=== PATIENT | female | born 1965 | race American Indian/Alaskan Native ===

== ENCOUNTER 2018-06-19 16:14 | Inpatient (IN) | payer OTHER ==
--- NOTE | 2018-06-19 16:37 | Emergency Department Report ---
Blank Doc - Documentation Documentation: 53 y/o female comes in for new weakness 20 mins PER DIEM NURSE. History of CVA and [facility] 2005.
--- NOTE | 2018-06-19 16:37 | Emergency Department Report ---
HPI - General Chief Complaint: Weakness Time Seen by Provider: 06/19/18 16:34 - HPI HPI: Room 22 The patient is a 53-year-old female presented with a chief complaint of headache and right-sided weakness. The patient states 20 minutes prior to arrival she developed a headache and right arm/right leg weakness. 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 Patient denies dysarthria and is unaware of dysphagia. Patient currently gives her headache a score of 9/10 Location: [employer] Duration: Onset 20 minutes prior to arrival Quality: Headache of, Weakness Severity: 9/10 Modifying factors: [see above] Context: [see above] Mode of transportation: [not driving] ED Past Medical Hx - Past Medical History Hx Hypertension: Yes Hx CVA: Yes (2006. Residual right-sided weakness) - Surgical History Hx Appendectomy: Yes Additional Surgical History: Hysterectomy, cerebral aneurysm coil - Family History Family history: no significant - Social History Smoking Status: Never Smoker ED Review of Systems ROS: Stated complaint: WEAKNESS ON RT SIDE/HEADACHE Other details as noted in HPI Constitutional: no symptoms reported Eyes: denies: eye pain ENT: denies: throat pain Respiratory: no symptoms reported Cardiovascular: denies: chest pain Endocrine: no symptoms reported Gastrointestinal: denies: abdominal pain Genitourinary: denies: dysuria Musculoskeletal: denies: back pain Neurological: headache, weakness Physical Exam - Physical Exam Physical Exam: GENERAL: The patient is well-developed well-nourished female lying on stretcher not appearing to be in acute distress. [] HEENT: Normocephalic. Atraumatic. Extraocular motions are intact. Patient has moist mucous membranes. NECK: Supple. Trachea midline CHEST/LUNGS: Clear to auscultation. There is no respiratory distress noted. HEART/CARDIOVASCULAR: Regular. There is no tachycardia. There is no gallop rub or murmur. ABDOMEN: Abdomen is soft, nontender. Patient has normal bowel sounds. There is no abdominal distention. SKIN: There is no rash. There is no edema. There is no diaphoresis. NEURO: The patient is awake, alert, and oriented. The patient is cooperative. Cranial nerves II through XI grossly intact. The tongue deviates to the right. The patient is only able to slightly move the right arm but not raise it off the bed. Patient unable to raise right lower extremity off the bed. The patient has normal speech MUSCULOSKELETAL: There is no evidence of acute injury. NIHSS= 9 LOC a. Alert= 0 Not alert but arousable to minor stimuli=1 Not alert requires repeated or strong stimuli to move= 2 Responds only reflex motor or unresponsive=3 b. asks month and age answers both correctly= 0 answers one correctly= 1 answers neither correctly= 2 Best Gaze normal= 0 abnormal in one or both but forced deviation or total paresis absent= 1 forced deviation or total gaze paresis= 2 Visual no visual loss= 0 partial hemianopia= 1 complete hemianopia= 2 bilateral hemianopia= 3 Facial Palsy normal= 0 (+)minor paralysis= 1 partial paralysis= 2 complete paralysis= 3 Motor Arm no drift= 0 drift before 10 secs but doesnt hit bed= 1 some effort against gravity= 2 (+)no effort against gravity= 3 no movement= 4 Motor leg no drift= 0 drift before 5 secs but doesnt hit bed= 1 drifts to bed before 5 secs= 2 (+)no effort against gravity= 3 no movement= 4 Limb ataxia absent=0 present in one limb= 1 (+)present in two limbs= 2 Sensory normal= 0 mild sensory loss= 1 severe (unaware of being touched)= 2 Best language mild/some loss of fluency= 1 severe= 2 mute= 3 Dysarthria normal= 0 slurs some words= 1 severe/unintelligible= 2 Extinction and Inattention no abnormality= 0 visual, tactile, auditory or personal inattention= 1 profound (doesnt recognize own hand or orients to only one side= 2 ED Course - Consultations Consultation #1: 06/19/18 17:09 Case discussed with tele neurologist- no TPA recommended at this time. Recommend CTA brain and neck and admission for further workup ED Medical Decision Making - Lab Data Result diagrams: 06/19/18 16:55 06/19/18 16:55 - EKG Data -: EKG Interpreted by Me EKG shows normal: sinus rhythm Rate: normal - EKG Data When compared to previous EKG there are: previous EKG unavailable Interpretation: nonspecific ST-T wave obdulia (T-wave inversion in lead aVL) - Radiology Data Radiology results: report reviewed (CT head, CTA brain, CTA neck), image reviewed (CT head, CTA brain, CTA neck) [address] [address] Cat Scan Report Signed Patient: CINDI HADDAD MR#: [id number] 92 : 1965 Acct:[id number] Age/Sex: 53 / F ADM Date: 06/19/18 Loc: ED Attending Dr: Order ing Physician: JOSEPH HAYNES MD Date of Service: 06/19/18 Procedure(s): CT head/brain wo con Accession Number(s): [id number] cc: JOSEPH HAYNES MD PROCEDURE: CT HEAD/BRAIN WO CON TECHNIQUE: CT examination of the head without IV contrast HISTORY: neuro deficit COMPARISONS: None FINDINGS: Nonspecific metallic density may reflect aneurysm clip in the anterior left CP angle region. Chronic appearing encephalomalacia and volume loss in the left cerebellar hemisphere suggestive of chronic infarct. Developmental variation includes a cavum septum pellucidum and vergae. No acute air-fluid level visualized in the included air- filled sinuses. Bone windows demonstrate no acute fracture. The brain is without mass, mass effect, hemorrhage, or acute infarct. There is no extra-axial intracranial bleed, brain bleed, or midline shift. The ventricles and sulci are age-appropriate. IMPRESSION: No acute CVA, intracranial bleed, or brain mass Nonspecific metallic density may reflect aneurysm clip in the anterior left CP angle region. Chronic appearing encephalomalacia and volume loss in the left cerebellar hemisphere suggestive of chronic infarct. This document is electronically signed by Kale Ward MD., Jun 19 2018 05:02:17 PM ET Transcribed By: BAL Dictated By: KALE WARD MD Electronically Auth enticated By: KALE WARD MD Signed Date/Time: 06/19/18 170 DD/ 53 TD/TT: 06/19/181654 [address] [address] Cat Scan Report Signed Patient: CINDI HADDAD MR#: [id number] 92 : 1965 Acct:[id number] Age/Sex: 53 / F ADM Date: 06/19/18 Loc: ED Attending Dr: Ordering Physician: JOSEPH HAYNES MD Date of Service: 06/19/18 Procedure(s): CT angio neck Accession Number(s): [id number] cc: JOSEPH HAYNES MD HISTORY: right-sided weakness PROCEDURE: Head CTA with contrast Neck CTA with contrast TECHNIQUE: CTA examination of the head with IV contrast CTA examination of the neck with IV contrast 2-D and 3-D angiographic reconstructions of the head and neck Images are first made available to this radiologist for interpretation on the date and time that report dictation is made. This accounts for the discrepancy between the procedure time and dictation,. COMPARISON: CT head 06/19/2018 FINDINGS: Head CTA: Developmental variation includes a cavum septum pellucidum and vergae. Again noted is nonspecific metallic density in the anterior left CP angle region. This may be an aneurysm clip. Metal artifact limits the examination. Again noted is chronic appearing encephalomalacia and volume loss in left cerebellar hemisphere suggestive of chronic infarct. Carotid siphon: Normal. Anterior cerebral: Normal. Middle cerebral: Normal. Posterior cerebral: Normal. Vertebral: Normal. Basilar: Normal. Dural sinuses: Normal. Occlusion: None. Vascular malformations: None. Aneurysm: None. IMPRESSION: No CTA evidence of brain vascular pathology Metallic density in left anterior CP angle region may b e an aneurysm clip Chronic appearing encephalomalacia and volume loss in left cerebellar hemisphere suggestive of chronic infarct Neck CTA: Common Carotid arteries: Normal. Carotid bifurcation: Normal. Proximal ICAs: Approximately 28% diameter stenosis at the left ICA origin. Proximal vertebral arteries: Normal. Occlusion: None. Vascular ulceration: None. Filling defect to suggest dissection: None IMPRESSION: Approximately 28% diameter stenosis of the left ICA origin This document is electronically signed by Kale Ward MD., Jun 19 2018 06:35:17 PM ET Transcribed By: BAL Dictated By: KALE WARD MD Electronically Authenticated By: KALE WARD MD Signed Date/Time: 06/19/181836 DD/ 10 TD/TT: 06/19/181710 [facility] [address] [place] [address] Cat Scan Report Signed Patient: CINDI HADDAD MR#: [id number] 92 : 1965 Acct:[id number] Age/Sex: 53 / F ADM Date: 06/19/18 Loc: ED Attending Dr: Ordering Physician: JOSEPH HAYNES MD Date of Service: 06/19/18 Procedure(s): CT angio head Accession Number(s): [id number] cc: JOSEPH HAYNES MD HISTORY: right-sided weakness PROCEDURE: Head CTA with contrast Neck CTA with contrast TECHNIQUE: CTA examination of the head with IV contrast CTA examination of the neck with IV contrast 2-D and 3-D angiographic reconstructions of the head and neck Images are first made available to this radiologist for interpretation on the date and time that report dictation is made. This accounts for the discrepancy between the procedure time and dictation time. COMPARISON: CT head 06/19/2018 FINDINGS: Head CTA: Developmental variation includes a cavum septum pellucidum and vergae. Again noted is nonspecific metallic density in the anterior left CP angle reg ion. This may be an aneurysm clip. Metal artifact limits the examination. Again noted is chronic appearing encephalomalacia and volume loss in left cerebellar hemisphere suggestive of chronic infarct. Carotid siphon: Normal. Anterior cerebral: Normal. Middle cerebral: Normal. Posterior cerebral: Normal. Vertebral: Normal. Basilar: Normal. Dural sinuses: Normal. Occlusion: None. Vascular malformations: None. Aneurysm: None. IMPRESSION: No CTA evidence of brain vascular pathology Metallic density in left anterior CP angle region may be an aneurysm clip Chronic appearing encephalomalacia and volume loss in left cerebellar hemisphere suggestive of chronic infarct Neck CTA: Common Carotid arteries: Normal. Carotid bifurcation: Normal. Proximal ICAs: Approximately 28% diameter stenosis at the left ICA origin. Proximal vertebral arteries: Normal. Occlusion: None. Vascular ulceration: None. Filling defect to suggest dissection: None IMPRESSION: Approximately 28% diameter stenosis of the left ICA origin This document is electronically signed by Kale Ward MD., Jun 19 2018 06:37:31 PM ET Transcribed By: BAL Dictated By: KALE WARD MD Electronically Authenticated By: KALE WARD MD Signed Date/Time: 06/19/181838 DD/ 20 TD/TT: 06/19/181820 - Differential Diagnosis CVA, ICH Critical Care Time: Yes Critical care time in (mins) excluding proc time.: 30 Critical care attestation.: If time is entered above; I have spent that time in minutes in the direct care of this critically ill patient, excluding procedure time. ED Disposition Clinical Impression: CVA (cerebral vascular accident) Disposition: [id number] OP ADMIT IP TO THIS HOSP Is pt being admited?: Yes Does the pt Need Aspirin: Yes Condition: Fair Time of Disposition: 18:42 (hospitalist paged (Dr Arriola))
--- NOTE | 2018-06-19 17:04 | Cat Scan Report ---
PROCEDURE: CT HEAD/BRAIN WO CON TECHNIQUE: CT examination of the head without IV contrast HISTORY: neuro deficit COMPARISONS: None FINDINGS: Nonspecific metallic density may reflect aneurysm clip in the anterior left CP angle region. Chronic appearing encephalomalacia and volume loss in the left cerebellar hemisphere suggestive of ch ronic infarct. Developmental variation includes a cavum septum pellucidum and vergae. No acute air-fluid level visualized in the included air-filled sinuses. Bone windows demonstrate no acute fracture. The brain is without mass, mass effect, hemorrhage, or acute infarct. There is no extra-axial intracranial bleed, brain bleed, or midline shift. The ventricles and sulci are age-appropriate. IMPRESSION: No acute CVA, intracranial bleed, or brain mass Nonspecific metallic density may reflect aneurysm clip in the anterior left CP angle region. Chronic appearing encephalomalacia and volume loss in the left cerebellar hemisphere suggestive of ch ronic infarct. This document is electronically signed by Kale Ward MD., Jun 19 2018 05:02:17 PM ET
[2018-06-19 17:05] LABS: Basophils # (Auto) 0.1 K/mm3 (0.0-0.1); Basophils % (Auto) 1.3 % (0.0-1.8); Eosinophils # (Auto) 0.1 K/mm3 (0.0-0.4); Eosinophils % (Auto) 1.3 % (0.0-4.3); Hemoglobin 12.7 gm/dl (10.1-14.3); Lymphocytes # (Auto) 2.2 K/mm3 (1.2-5.4); Lymphocytes % (Auto) 36.7 % (13.4-35.0); Mean Corpuscular HGB Conc 33 % (30-34); Mean Corpuscular Volume 90 fl (79-97); Monocytes # (Auto) 0.4 K/mm3 (0.0-0.8); Monocytes % (Auto) 7.2 % (0.0-7.3); Platelet Count 249 K/mm3 (140-440); Red Blood Count 4.25 M/mm3 (3.65-5.03); Red Cell Distribution Width 14.4 % (13.2-15.2)
[2018-06-19] MEDS ORDERED: NORCO 5/325 PO ONE (17:11)
[2018-06-19] MEDS ORDERED: PLAVIX PO ONE (17:11)
[2018-06-19 17:12] LABS: INR 0.9 (0.87-1.13)
[2018-06-19 17:13] LABS: Partial Thromboplastin Time 29.8 Sec. (24.2-36.6); Thrombin Time 14.9 Sec. (15.1-19.6)
--- NOTE | 2018-06-19 17:13 | Emergency Department Report ---
HPI - General Chief Complaint: Weakness Time Seen by Provider: 06/19/18 16:34 - HPI HPI: [facility] Asked to see this patient in telemedicine consultation. Consultation was performed with assistance of ancillary/medical staff at bedside. Comments: Last Known normal 1600 Door Time: 1636 [facility] Contacted: 1636 [facility] first log in: 1641 NIHSS assessment time: 1650 Call back time: 1650 Needle Time: no iv tpa HPI: 53 yof with hx of cerebral aneurysm, possibly hemorrhagic stroke presents with headache and worsening of right sided weakness. She drags her leg at baseline line and ambulates with walker but today required assistance to move. She has moderate headache but denies vision change. Ct scan head per my review is negative for acute process. VSS Gen Wn/Wd in Nad TeleStroke Assessment: LOC: 0 LOC questions: 0 LOC Commands : 0 Gaze : 0 Visual etienne : 0 Facial movements :1 Upper limb Motor 2 Lower limb Motor 3 Limb Coordination - 0 Sensory - - 0 Language - 0 Speech - 1 Neglect / extinction - 0 NIHSS Score: 7 IMPRESSION Cerebral aneurysm hx of Stroke with residual right hemibody weakness with worsening sxs in conjunction with headache. Medical Decision Making: Patient is not candidate for alteplase due to ICH hx, and reactivation of old sxs. Not an IR candidate as low clinical suspicion for LVO by neurologic assessment Recommendations: - Daily antithrombotics to initiate now if no contraindication. - agree with cta head and neck at this time. - Further work up with Stroke labs will be deferred to inpt neurology service - Needs Inpatient Neurology consultation and follow up - Thank you for allowing us to participate in the care of your patient, if there are any questions please don't hesitate to contact us Discussed plan of care with patient/hospital staff Physician: Nela Collado, DO [facility] ED Past Medical Hx - Past Medical History Previous Medical History?: Yes Hx Hypertension: Yes Hx CVA: Yes Additional medical history: aneurysm - Surgical History Past Surgical History?: Yes ED Review of Systems ROS: Stated complaint: WEAKNESS ON RT SIDE/HEADACHE Other details as noted in HPI Physical Exam - Physical Exam Vital Signs: Vital Signs 06/19/18 06/19/18 16:49 17:00 Pulse Rate 71 Respiratory 14 Rate Blood Pressure 186/93 O2 Sat by Pulse 97 100 Oximetry ED Course Vital Signs 06/19/18 06/19/18 16:49 17:00 Pulse Rate 71 Respiratory 14 Rate Blood Pressure 186/93 O2 Sat by Pulse 97 100 Oximetry ED Medical Decision Making - Lab Data Result diagrams: 06/19/18 16:55 Critical care attestation.: If time is entered above; I have spent that time in minutes in the direct care of this critically ill patient, excluding procedure time. ED Disposition Clinical Impression: CVA (cerebral vascular accident) Disposition: DC-[id number] OP ADMIT IP TO THIS HOSP Is pt being admited?: Yes Condition: Stable
[2018-06-19 17:42] LABS: Creatine Kinase MB 1.9 ng/mL (0.0-4.0)
[2018-06-19 17:44] LABS: Alanine Aminotransferase 31 units/L (7-56); Albumin 4.3 g/dL (3.9-5); BUN/Creatinine Ratio 16; Blood Urea Nitrogen 11 mg/dL (7-17); Calcium 9.3 mg/dL (8.4-10.2); Hemolysis Index 0
--- NOTE | 2018-06-19 18:39 | Cat Scan Report ---
HISTORY: right-sided weakness PROCEDURE: Head CTA with contrast Neck CTA with contrast TECHNIQUE: CTA examination of the head with IV contrast CTA examination of the neck with IV contrast 2-D and 3-D angiographic reconstructions of the head and neck Images are first made available to this radiologist for interpretation on the date and time that repo rt dictation is made. This accounts for the discrepancy between the procedure time and dictation time . COMPARISON: CT head 06/19/2018 FINDINGS: Head CTA: Developmental variation includes a cavum septum pellucidum and vergae. Again noted is nonspecific metallic density in the anterior left CP angle region. This may be an aneu rysm clip. Metal artifact limits the examination. Again noted is chronic appearing encephalomalacia and volume loss in left cerebellar hemisphere sugge stive of chronic infarct. Carotid siphon: Normal. Anterior cerebral: Normal. Middle cerebral: Normal. Posterior cerebral: Normal. Vertebral: Normal. Basilar: Normal. Dural sinuses: Normal. Occlusion: None. Vascular malformations: None. Aneurysm: None. IMPRESSION: No CTA evidence of brain vascular pathology Metallic density in left anterior CP angle region may be an aneurysm clip Chronic appearing encephalomalacia and volume loss in left cerebellar hemisphere suggestive of chroni c infarct Neck CTA: Common Carotid arteries: Normal. Carotid bifurcation: Normal. Proximal ICAs: Approximately 28% diameter stenosis at the left ICA origin. Proximal vertebral arteries: Normal. Occlusion: None. Vascular ulceration: None. Filling defect to suggest dissection: None IMPRESSION: Approximately 28% diameter stenosis of the left ICA origin This document is electronically signed by Kale Ward MD., Jun 19 2018 06:37:31 PM ET
[2018-06-19] MEDS ORDERED: MORPHINE IV PRN (20:06)
[2018-06-19] MEDS ORDERED: MILK OF MAGNESIA PO PRN (20:06)
[2018-06-19] MEDS ORDERED: TYLENOL PO PRN (20:06)
[2018-06-19] MEDS ORDERED: DULCOLAX PR PRN (20:06)
[2018-06-19] MEDS ORDERED: SODIUM CHLORIDE FLUSH SYRINGE 10 ML IV PRN (20:06)
[2018-06-19] MEDS ORDERED: DILAUDID IV PRN (20:09)
[2018-06-19] MEDS: COLACE PO SCH ×2 (20:44→21:14)
--- NOTE | 2018-06-19 21:02 | History and Physical Report ---
History of Present Illness Date of examination: 06/19/18 Date of admission: 06/19/18 18:44 Chief complaint: Increased right-sided weakness, profound headache History of present illness: 53-year-old -[place] female with history of cerebral aneurysm, hypertens ion, HLD, and CVA 2005 [facility] with c/o headache and worsening right sided weakness. At baseline she drags her right leg and ambulates with a walker. Patient states that [place] when she started feeling nauseous followed by progressively worsening headache. She states that her headache is located in the frontal lobe and rates her pain as 10/10. Patient also states that her headache is accompanied by increased right sided weakness. There are no aggravating or relieving factors. Denies emesis, fever, cough, hemoptysis, chest pain, changes in vision. Past History Past Medical History: hypertension, hyperlipidemia, stroke (2005 with residual right sided weakness), other (endometriosis) Past Surgical History: appendectomy, hysterectomy Social history: no significant social history Family history: no significant family history Medications and Allergies Allergies Allergy/AdvReac Type Severity Reaction Status Date / Time aspirin Allergy Unknown Verified 06/19/18 17:50 Home Medications Medication Instructions Recorded Confirmed Last Taken Type Clopidogrel [Plavix] 300 mg PO ONCE 06/19/18 06/19/18 06/19/18 History Lisinopril [Zestril] 20 mg PO QDAY 06/19/18 06/19/18 06/19/18 History Active Meds: Active Medications Acetaminophen (Tylenol) 650 mg PO Q4H PRN PRN Reason: Pain, Mild (1-3) Atorvastatin Calcium (Lipitor) 40 mg PO QHS [facility] Last Admin: 06/19/18 20:44 Dose: 40 mg Documented by: Bisacodyl (Dulcolax) 10 mg IA QDAY PRN PRN Reason: Constipation Clopidogrel Bisulfate (Plavix) 75 mg PO QDAY [facility] Docusate Sodium (Colace) 100 mg PO BID [facility] Last Admin: 06/19/18 20:44 Dose: 100 mg Documented by: Hydralazine HCl (Apresoline) 10 mg IV Q4HR PRN PRN Reason: Blood Pressure Hydromorphone HCl (Dilaudid) 0.5 mg IV Q3H PRN PRN Reason: Pain , Severe (7-10) Stop: 06/20/18 23:59 Last Admin: 06/19/18 20:44 Dose: 0.5 mg Documented by: Magnesium Hydroxide (Milk Of Magnesia) 30 ml PO Q4H PRN PRN Reason: Constipation Morphine Sulfate (Morphine) 2 mg IV Q4H PRN PRN Reason: Pain, Moderate (4-6) Stop: 06/20/18 23:59 Ondansetron HCl (Zofran) 4 mg IV Q8H PRN PRN Reason: Nausea And Vomiting Oxycodone/Acetaminophen (Percocet 5/325) 1 tab PO Q6H PRN PRN Reason: Pain, Moderate (4-6) Sodium Chloride (Sodium Chloride Flush Syringe 10 Ml) 10 ml IV PRN PRN PRN Reason: LINE FLUSH Review of Systems All systems: negative (reviewed and no additional remarkable complaints except as noted below) Ears, nose, mouth and throat: headache (frontal headache) Musculoskeletal: other (right sided weakness) Neurological: weakness (right-sided weakness, ), gait dysfunction (related to previous stroke right-sided) Exam - Physical Exam Narrative exam: Physical exam General appearance: Present: No acute distress, right facial droop - EENT Eyes: Present: PERRL, EOM intact ENT: hearing intact, - Neck Neck: Present: supple, normal ROM - Respiratory Respiratory effort: Non-labored Respiratory: Clear throughout - Cardiovascular Heart rate:62 (bpm) Rhythm: regular Heart Sounds: Present: S1 & S2. Absent: rub, click - Extremities Extremities: no ischemia, pulses intact, abnormal (right-sided weakness. On able to move right upper extremity and right lower extremity against gravity) - Peripheral Assessment Peripheral Pulses: within normal limits - Abdominal General gastrointestinal: soft, non-tender, normal bowel sounds - Integumentary Integumentary: Present: warm, dry - Musculoskeletal Musculoskeletal: Right-sided weakness - Psychiatric Psychiatric: cooperative - Constitutional Vitals: Temp Pulse Resp BP Pulse Ox 97.8 F 62 15 161/65 100 06/19/18 17:08 06/19/18 19:16 06/19/18 19:16 06/19/18 19:16 06/19/18 19:16 Results - Labs CBC & Chem 7: 06/19/18 16:55 06/19/18 16:55 Labs: Laboratory Last Values WBC 6.0 K/mm3 (4.5-11.0) 06/19/18 16:55 RBC 4.25 M/mm3 (3.65-5.03) 06/19/18 16:55 Hgb 12.7 gm/dl (10.1-14.3) 06/19/18 16:55 Hct 38.0 % (30.3-42.9) 06/19/18 16:55 MCV 90 fl (79-97) 06/19/18 16:55 MCH 30 pg (28-32) 06/19/18 16:55 MCHC 33 % (30-34) 06/19/18 16:55 RDW 14.4 % (13.2-15.2) 06/19/18 16:55 Plt Count 249 K/mm3 (140-440) 06/19/18 16:55 Lymph % (Auto) 36.7 % (13.4-35.0) H 06/19/18 16:55 [place] % (Auto) 7.2 % (0.0-7.3) 06/19/18 16:55 Eos % (Auto) 1.3 % (0.0-4.3) 06/19/18 16:55 Baso % (Auto) 1.3 % (0.0-1.8) 06/19/18 16:55 Lymph # 2.2 K/mm3 (1.2-5.4) 06/19/18 16:55 [place] # 0.4 K/mm3 (0.0-0.8) 06/19/18 16:55 Eos # 0.1 K/mm3 (0.0-0.4) 06/19/18 16:55 Baso # 0.1 K/mm3 (0.0-0.1) 06/19/18 16:55 Seg Neutrophils % 53.5 % (40.0-70.0) 06/19/18 16:55 Seg Neutrophils # 3.2 K/mm3 (1.8-7.7) 06/19/18 16:55 PT 12.7 Sec. (12.2-14.9) 06/19/18 16:55 INR 0.90 (0.87-1.13) 06/19/18 16:55 APTT 29.8 Sec. (24.2-36.6) 06/19/18 16:55 14.9 Sec. (15.1-19.6) L 06/19/18 16:55 Sodium 141 mmol/L (137-145) 06/19/18 16:55 Potassium 4.0 mmol/L (3.6-5.0) 06/19/18 16:55 Chloride 103.6 mmol/L (98-107) 06/19/18 16:55 Carbon Dioxide 26 mmol/L (22-30) 06/19/18 16:55 15 mmol/L 06/19/18 16:55 BUN 11 mg/dL (7-17) 06/19/18 16:55 0.7 mg/dL (0.7-1.2) 06/19/18 16:55 Estimated GFR > 60 ml/min 06/19/18 16:55 16 % 06/19/18 16:55 Glucose 85 mg/dL (65-100) 06/19/18 16:55 POC Glucose 64 (70-105) L 06/19/18 16:56 Calcium 9.3 mg/dL (8.4-10.2) 06/19/18 16:55 0.20 mg/dL (0.1-1.2) 06/19/18 16:55 AST 32 units/L (5-40) 06/19/18 16:55 ALT 31 units/L (7-56) 06/19/18 16:55 151 units/L (35-129) H 06/19/18 16:55 131 units/L (30-135) 06/19/18 16:55 CK-MB (CK-2) 1.9 ng/mL (0.0-4.0) 06/19/18 16:55 CK-MB (CK-2) Rel Index 1.4 (0-4) 06/19/18 16:55 < 0.010 ng/mL (0.00-0.029) 06/19/18 16:55 7.5 g/dL (6.3-8.2) 06/19/18 16:55 4.3 g/dL (3.9-5) 06/19/18 16:55 1.3 % 06/19/18 16:55 Short CBC 06/19/18 Range/Units 16:55 WBC 6.0 (4.5-11.0) K/mm3 Hgb 12.7 (10.1-14.3) gm/dl Hct 38.0 (30.3-42.9) % Plt Count 249 (140-440) K/mm3 BMP 06/19/18 16:55 Sodium 141 Potassium 4.0 Chloride 103.6 Carbon Dioxide 26 BUN 11 Creatinine 0.7 Glucose 85 Calcium 9.3 Cardiac Enzymes 06/19/18 Range/Units 16:55 Total Creatine Kinase 131 (30-135) units/L CK-MB (CK-2) 1.9 (0.0-4.0) ng/mL Troponin T < 0.010 (0.00-0.029) ng/mL Liver Function 06/19/18 Range/Units 16:55 Total Bilirubin 0.20 (0.1-1.2) mg/dL AST 32 (5-40) units/L ALT 31 (7-56) units/L Alkaline Phosphatase 151 H (35-129) units/L Albumin 4.3 (3.9-5) g/dL - Imaging and Cardiology CT Scan - head: report reviewed (No CTA evidence of brain vascular pathology; Metallic density in left anterior CP angle region may be an aneurysm clip; Chronic appearing encephalomalacia and volume loss in left cerebellar hemisphere suggestive of chronic infarct), image reviewed Imaging and Cardiology: CTA Neck: IMPRESSION: Approximately 28% diameter stenosis of the left ICA origin Assessment and Plan Assessment and plan: 53-year-old -[place] female with history of cerebral aneurysm, hypertension, HLD, and CVA 2005 presents to [facility] with c/o headache and worsening right sided weakness. At baseline she drags her right leg and ambulates with a walker. Given patient's history of cerebral aneurysm she is not a candidate for TPA. CT was unrevealing for any acute abnormalities. Troponin negative. Telemetry specialist was contacted for initial assessment patient. Patient will be admitted to telemetry. Suspicion of Acute CVA Hx of CVA 2005 History of cerebral aneurysm Hypertensive urgency History of hypertension Acute Headache Plan: Continue supportive care. Start Plavix 75mg daily No aspirin- patient is allergic No TPA- d/t history of aneurysm Continue stroke protocol Continue neuro checks Monitor BP Hold home antihypertensive medications at this time IV hydralazine when necessary for SBP>160 PT/OT consulted Continue telemetry monitoring Pain management Repeat CTA in 4 days DVT PPX on Plavix and SCDs Advance Directives: No VTE prophylaxis?: Chemical Plan of care discussed with patient/family: Yes
[2018-06-19] MEDS: ZOFRAN IV PRN (23:57)
[2018-06-20] MEDS: PERCOCET 5/325 PO PRN ×2 (00:10→18:27)
[2018-06-20] MEDS: APRESOLINE IV PRN ×2 (00:11→18:34)
--- NOTE | 2018-06-20 08:47 | Progress Note ---
Subjective Date of service: 06/20/18 Interval history: patient seen and assessed... prior hx of aneurysm and old stroke right cerebellum this stroke has stable appearance blood sugar is noted plan check sed rate Objective - Vital Sign Vital Signs - 12hr 06/19/18 06/19/18 06/20/18 22:00 23:54 00:11 Temperature 97.8 F Pulse Rate 74 62 62 Respiratory 18 Rate Blood Pressure 172/71 172/71 O2 Sat by Pulse 98 Oximetry 06/20/18 07:43 Temperature 97.8 F Pulse Rate 76 Respiratory 18 Rate Blood Pressure 139/59 O2 Sat by Pulse 99 Oximetry - Laboratory Findings CBC and BMP: 06/19/18 16:55 06/19/18 16:55 Abnormal Lab Findings: Abnormal Labs 06/19/18 06/19/18 06/19/18 16:55 16:55 16:55 Lymph % (Auto) 36.7 H Thrombin Time 14.9 L POC Glucose Alkaline Phosphatase 151 H 06/19/18 16:56 Lymph % (Auto) Thrombin Time POC Glucose 64 L Alkaline Phosphatase
[2018-06-20 09:40] LABS: Chol/HDL Ratio 2.84 %
[2018-06-20] MEDS ORDERED: PLAVIX PO SCH (10:00)
[2018-06-20] MEDS: COLACE PO SCH ×3 (10:16→21:55)
--- NOTE | 2018-06-20 13:00 | Progress Note ---
Assessment and Plan Assessment and plan: Right arm weakness CT head negative cannot do MRI because coils History of cerebral aneurysm history of stroke with right sided weakness HTN Monitor BP Hyperlipidemia full code status History Interval history: Headache right sided weakness Hospitalist Physical - Physical exam Narrative exam: Gen: Not in acute distress, lying in bed,obese HEENT: Normocephalic, atraumatic Neck: supple, no JVD Heart: S1 and S2 reg, no murmurs, rubs or gallop Lungs: Clear, no crackles Abd: soft, non tender, non distended, normal BS Ext: No edema, no clubbing, no cyanosis, Neuro: Awake,alert, oriented x 3, - Constitutional Vitals: Temp Pulse Resp BP Pulse Ox 97.8 F 64 18 139/59 99 06/20/18 07:43 06/20/18 09:59 06/20/18 07:43 06/20/18 07:43 06/20/18 07:43 Results - Labs CBC & Chem 7: 06/19/18 16:55 06/19/18 16:55 Labs: Laboratory Last Values WBC 6.0 K/mm3 (4.5-11.0) 06/19/18 16:55 RBC 4.25 M/mm3 (3.65-5.03) 06/19/18 16:55 Hgb 12.7 gm/dl (10.1-14.3) 06/19/18 16:55 Hct 38.0 % (30.3-42.9) 06/19/18 16:55 MCV 90 fl (79-97) 06/19/18 16:55 MCH 30 pg (28-32) 06/19/18 16:55 MCHC 33 % (30-34) 06/19/18 16:55 RDW 14.4 % (13.2-15.2) 06/19/18 16:55 Plt Count 249 K/mm3 (140-440) 06/19/18 16:55 Lymph % (Auto) 36.7 % (13.4-35.0) H 06/19/18 16:55 [place] % (Auto) 7.2 % (0.0-7.3) 06/19/18 16:55 Eos % (Auto) 1.3 % (0.0-4.3) 06/19/18 16:55 Baso % (Auto) 1.3 % (0.0-1.8) 06/19/18 16:55 Lymph # 2.2 K/mm3 (1.2-5.4) 06/19/18 16:55 [place] # 0.4 K/mm3 (0.0-0.8) 06/19/18 16:55 Eos # 0.1 K/mm3 (0.0-0.4) 06/19/18 16:55 Baso # 0.1 K/mm3 (0.0-0.1) 06/19/18 16:55 Seg Neutrophils % 53.5 % (40.0-70.0) 06/19/18 16:55 Seg Neutrophils # 3.2 K/mm3 (1.8-7.7) 06/19/18 16:55 ESR 43 mm/Hr (0-20) 06/20/18 09:13 PT 12.7 Sec. (12.2-14.9) 06/19/18 16:55 INR 0.90 (0.87-1.13) 06/19/18 16:55 APTT 29.8 Sec. (24.2-36.6) 06/19/18 16:55 14.9 Sec. (15.1-19.6) L 06/19/18 16:55 Sodium 141 mmol/L (137-145) 06/19/18 16:55 Potassium 4.0 mmol/L (3.6-5.0) 06/19/18 16:55 Chloride 103.6 mmol/L (98-107) 06/19/18 16:55 Carbon Dioxide 26 mmol/L (22-30) 06/19/18 16:55 15 mmol/L 06/19/18 16:55 BUN 11 mg/dL (7-17) 06/19/18 16:55 0.7 mg/dL (0.7-1.2) 06/19/18 16:55 Estimated GFR > 60 ml/min 06/19/18 16:55 16 % 06/19/18 16:55 Glucose 85 mg/dL (65-100) 06/19/18 16:55 POC Glucose 64 (70-105) L 06/19/18 16:56 6.0 % (4-6) 06/20/18 09:13 Calcium 9.3 mg/dL (8.4-10.2) 06/19/18 16:55 0.20 mg/dL (0.1-1.2) 06/19/18 16:55 AST 32 units/L (5-40) 06/19/18 16:55 ALT 31 units/L (7-56) 06/19/18 16:55 151 units/L (35-129) H 06/19/18 16:55 131 units/L (30-135) 06/19/18 16:55 CK-MB (CK-2) 1.9 ng/mL (0.0-4.0) 06/19/18 16:55 CK-MB (CK-2) Rel Index 1.4 (0-4) 06/19/18 16:55 < 0.010 ng/mL (0.00-0.029) 06/19/18 16:55 7.5 g/dL (6.3-8.2) 06/19/18 16:55 4.3 g/dL (3.9-5) 06/19/18 16:55 1.3 % 06/19/18 16:55 Triglycerides 103 mg/dL (2-149) 06/20/18 09:13 Cholesterol 188 mg/dL (50-199) 06/20/18 09:13 126 mg/dL (50-130) 06/20/18 09:13 66 mg/dL (40-59) H 06/20/18 09:13 2.84 % 06/20/18 09:13 Active Medications - Current Medications Current Medications: Generic Name Dose Route Start Last Admin Trade Name Freq PRN Reason Stop Dose Admin Acetaminophen 650 mg 06/19/18 20:06 Tylenol PO Q4H PRN Pain, Mild (1-3) Atorvastatin Calcium 40 mg 06/19/18 22:00 06/19/18 21:14 Lipitor PO Not Given QHS [facility] Bisacodyl 10 mg 06/19/18 20:06 Dulcolax DC QDAY PRN Constipation Clopidogrel Bisulfate 75 mg 06/20/18 10:00 06/20/18 10:16 Plavix PO 75 mg QDAY [facility] Administration Docusate Sodium 100 mg 06/19/18 22:00 06/20/18 10:16 Colace PO 100 mg BID [facility] Administration Hydralazine HCl 10 mg 06/19/18 20:17 06/20/18 00:11 Apresoline IV 10 mg Q4HR PRN Administration Blood Pressure Hydromorphone HCl 0.5 mg 06/19/18 20:09 06/19/18 20:44 Dilaudid IV 06/20/18 23:59 0.5 mg Q3H PRN Administration Pain , Severe (7-10) Magnesium Hydroxide 30 ml 06/19/18 20:06 Milk Of Magnesia PO Q4H PRN Constipation Morphine Sulfate 2 mg 06/19/18 20:06 Morphine IV 06/20/18 23:59 Q4H PRN Pain, Moderate (4-6) Ondansetron HCl 4 mg 06/19/18 20:06 06/19/18 23:57 Zofran IV 4 mg Q8H PRN Administration Nausea And Vomiting Oxycodone/Acetaminophen 1 tab 06/19/18 20:06 06/20/18 00:10 Percocet 5/325 PO 1 tab Q6H PRN Administration Pain, Moderate (4-6) Sodium Chloride 10 ml 06/19/18 20:06 06/19/18 21:15 Sodium Chloride Flush Syringe 10 Ml IV 10 ml PRN PRN Administration LINE FLUSH
[2018-06-20] MEDS: ZOFRAN IV PRN (18:35)
--- NOTE | 2018-06-20 21:22 | Consultation ---
HISTORY OF PRESENT ILLNESS: This is a 53-year-old black female that is coming to the area on the way to [facility] where she suddenly became acutely ill, presents to the Emergency Room with severe headaches, weakness, history of stroke and aneurysm surgery in 2005. Reviewing her aneurysm, it is intact. 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 She has old infarct in the left cerebellum. I am not sure if this occurred at the time of the surgery. There is no interval change. I think she is feeling better at the present time. No progression in her symptoms. No acute headache at the present time. I have reviewed over her laboratory; her PT is 12.7, glucose is 64, alkaline phosphatase 151. Her hematocrit is 38, lymphocyte count is slightly elevated at 36.7%. She was feeling weak and nauseated on admission, but seems to be improving somewhat. ALLERGIES: ASPIRIN. SOCIAL HISTORY: Unremarkable. Does not drink, does not smoke. PHYSICAL EXAMINATION: VITAL SIGNS: Blood pressure 172/71, pulse rate is 62, temperature 97.8 degrees, respiratory rate is 18. NECK: Supple. NEUROLOGIC: She has full ocular movements. [employer] strength equal. Motor tone normal. Pupils equal, round, reactive to light. Speech is good. Vision is excellent. She is oriented to person, place, and time. Does not have any aphasia. No focal neuro deficits are present. 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 The aneurysm clip is intact. She also has an old large ischemic infarct in the ____ cerebellum. Etiology of the nausea and headache is not clear at this point. Await MRI, further testing. We will get sed rate. Of particular note is the fact her blood sugar is slightly low and in and out itself, I do not think it is low enough to produce symptoms, but this will have to be assessed. JOB# [id number] GEOVANNI/NTS
[2018-06-20] MEDS ORDERED: REGLAN IV PRN (21:58)
[2018-06-21 07:39] VITALS: BP 153/60
--- NOTE | 2018-06-21 08:15 | Progress Note ---
Subjective Date of service: 06/21/18 Interval history: the sed rate is 42 which is acceptable and not the likely cause for symptoms await the MRI suspect TIA Objective - Vital Sign Vital Signs - 12hr 06/20/18 06/20/18 06/21/18 22:00 23:30 05:05 Temperature 98.0 F 98.0 F Pulse Rate 79 77 77 Pulse Rate [ 78 Left Radial] Pulse Rate [ 78 Right Radial] Respiratory 18 20 18 Rate Blood Pressure 131/54 133/59 O2 Sat by Pulse 99 96 Oximetry 06/21/18 07:38 Temperature 97.9 F Pulse Rate 70 Pulse Rate [ Left Radial] Pulse Rate [ Right Radial] Respiratory 18 Rate Blood Pressure 153/60 O2 Sat by Pulse 100 Oximetry - Laboratory Findings CBC and BMP: 06/19/18 16:55 06/19/18 16:55 Abnormal Lab Findings: Abnormal Labs 06/19/18 06/19/18 06/19/18 16:55 16:55 16:55 Lymph % (Auto) 36.7 H Thrombin Time 14.9 L POC Glucose Alkaline Phosphatase 151 H HDL Cholesterol 06/19/18 06/20/18 16:56 09:13 Lymph % (Auto) Thrombin Time POC Glucose 64 L Alkaline Phosphatase HDL Cholesterol 66 H
--- NOTE | 2018-06-21 09:37 | Event Note ---
Date: 06/21/18 Patient signed out against medical advice.
[2018-06-21] MEDS ORDERED: HEPARIN SUB-Q SCH (10:00)
== END 2018-06-21 09:15 | disposition left against medical advice (07) | DRG 69 ==
LOC: ED 16:14 → 4A 18:44
PROVIDERS: ADMIT Internal Medicine; ATTEND Internal Medicine
DX: G45.9 Transient cerebral ischemic attack, unspecified (principal); I16.0 Hypertensive urgency; I10 Essential (primary) hypertension; E78.5 Hyperlipidemia, unspecified; Z90.49 Acquired absence of other specified parts of digestive tract; Z90.710 Acquired absence of both cervix and uterus; Z88.6 Allergy status to analgesic agent; Z79.899 Other long term (current) drug therapy
CPT/HCPCS: 36415; 70450; 70496; 70498; 80053; 80061; 82550; 82553; 82962; 83036; 84484; 85025; 85610; 85652; 85670; 85730; 93005; 93010; 96374; G0378; A9270-GY; J0360; J1170; J2270; J2405; J2765; Q9967